=== PATIENT | male | born 1960 | race Caucasian/White ===

== ENCOUNTER 2017-04-20 11:19 | Day surgery (SDC) | payer OTHER ==
[~2017-04-20] VITALS: Ht 180.3 cm; Wt 85.6 kg
[2017-04-20 11:41] VITALS: Ht 180.3 cm; Wt 85.6 kg
[2017-04-20 11:51] VITALS: BP 134/78; PULSE 61; RESP 9
--- NOTE | 2017-04-20 12:17 | OPPN ---
Date/Time of Note Date/Time of Note DATE: 04/20/17 TIME: 12:16 Proc Note GI Procedure Date 04/20/17 Indication: screening/surveillance Pre-procedure Diagnosis h/o colon polyps Post-procedure Diagnosis minim hemorrhoids Procedure Performed: Colonoscopy Surgeon see signature line Bill Poster Installer none Anesthesia Type: moderate sedation Tourniquet Time none EBL none Transfusion required none Biopsy 1: none Grafts/Implants none Tubes/Drains none Complication(s) none Disposition: home Procedure Description colonoscopy showed mini hemorrhoids JESUS COONEY MD Apr 20, 2017 12:17
[2017-04-20] MEDS ORDERED: MIDAZOLAM 1 MG/ML 2 ML INJ ONE ×2 (12:28→12:36)
[2017-04-20] MEDS ORDERED: FENTAnyl 50 MCG/ML VIAL ONE (12:28)
[2017-04-20 13:06] VITALS: BP 103/66; PULSE 58; RESP 24
--- NOTE | 2017-04-21 05:26 | GILP ---
DATE OF PROCEDURE: 04/20/2017 PROCEDURE: Colonoscopy. PREOPERATIVE DIAGNOSIS: History of colon polyps, rule out recurrence of colon polyps. POSTOPERATIVE DIAGNOSIS: 1. No polyps noted. 2. Minimal external hemorrhoids were noted. DESCRIPTION OF PROCEDURE: After the informed written consent was obtained, the patient was rolled i n the left lateral side, 4 mg Versed, 75 mcg fentanyl was given as intravenous anesthesia. When the patient became somnolent, Olympus video colonoscope was introduced into the rectum and scop e was advanced all the way to the cecum. The entire colon appeared perfectly normal. No polyps not ed. On the way out, no additional abnormalities detected, minimal external hemorrhoids were noted a nd the procedure was terminated. PLAN: Recommend a repeat colonoscopy in 5 years. Dictated By: HEATH READ MD VH/NTS Conf#: [id number] DID#: [id number] CC: Silvana PENN;*EndCC*
== END 2017-04-20 20:57 | disposition home or self-care (01) ==
LOC: GIL 11:19
PROVIDERS: ATTEND Internal Medicine Gastroenterology
DX: K64.4 Residual hemorrhoidal skin tags (principal); Z86.010 Personal history of colon polyps
CPT/HCPCS: 45378; J2250; J3010; Z7610